=== PATIENT | female | born 1965 | race Caucasian/White ===

== ENCOUNTER 2019-05-09 15:30 | Outpatient (RCR) | payer OTHER, SELFPAY ==
--- NOTE | 2019-04-11 15:59 | PTOPEVAL ---
PHYSICAL THERAPY EVALUATION AND PLAN OF CARE 04-11-2019 The PT evaluation was completed for the diagnosis of low back pain, with sciatica to R LE. The plan of treatment is for 2x/week for 4 weeks. Thank you for referring Tigist to [facility]. Please review, sign, date and return this plan of care [facility]. I agree with and certify that the following plan of care is medically necessary. Referring Physician Date Attending Provider: Erica Lara MD *PT Outpatient Evaluation Start: 04/11/19 15:07 Document 04/11/19 15:00 TRACIE (Rec: 04/11/19 15:53 TRACIE [id number]) Outpatient Past Medical History Neurological History Hx Neurological Disorders No Significant History Cardiovascular History Hx Hypercholesterolemia Yes: meds Respiratory History Hx Respiratory Disorders No Significant History Gastrointestinal History Hx Gastrointestinal Disorders No Significant History Genitourinary History Hx Genitourinary Disorders No Significant History Musculoskeletal History Hx Arthritis Yes Hx Back Pain Yes: this incident; back pain with Hematological History Hx Hematological Disorders No Significant History Endocrine History Hx Diabetes Yes: borderline- testing blood and no meds HEENT History Hx HEENT Disorders No Significant History Integumentary History Hx Skin Disorders No Significant History Evaluation Information Problem Diagnosis low back pain, sciatica R LE Onset Feb 18, 2019 Subjective Information lifting and doing more; to ER Query Text:As Reported By Patient/ Feb 21; took predisone did not Family help; saw chiropractor- helped a little; doing exercises from ER, helped some; home TENS unit helps, continue to use; back is much better than initially; did have problems with stairs and walking, now better; Diagnostic Tests X-Rays For This Problem Yes: per pt- nothing on it Previous Treatments Previous Treatments For This Problem chiropractor- popped back and electric stim Prior Level of Function Activity Level (Last 3 Months) 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
--- NOTE | 2019-05-09 16:03 | PTOPEVAL ---
PHYSICAL THERAPY DISCHARGE 05-09-2019 Ms. Queen has received 6 Physical Therapy sessions, from April 11 to today, for the diagnosis of back pain. Compared to the initial evaluation she has improved with: decreased pain rating;increased reported walking, sleeping, sitting tolerances; Oswestry score improved; increased flexibility of anterior hips/quads; improved posture and position of her back in standing and independent with her home exercises and home management of her pain. The PT goals have been achieved, except radicular pain into R anterior thigh; she will be discharged from PT at this time. Thank you for referring Tigist to [facility]. Please review, sign, date and return this plan of care [facility]. I agree with and certify that the following plan of care is medically necessary. Referring Physician Date Attending Provider: Erica Lara, Document 05/09/19 15:35 TRACIE (Rec: 05/09/19 16:03 TRACIE [email or web address]) Assessment Status Discharge Subjective Information Tigist reports: back is better, Query Text:As Reported By Patient/ has gotten back to doing more Family ; is back to doing everything again; is doing exercises and they help; agrees to discharge from PT services. Oswestry self assessment score of 18% limitation; Pain Assessment Timing of Pain Assessment Timing of Pain Assessment Assessment Pain Scale Pain Scale Used Numeric (1 - 10) Self Report Pain Assessment Right Back Reported Pain Level 2 Pain Radiation Right Leg Radicular Pain Location with more activity, into R anterior thigh-daily,10-15 min ,several times/day Pain Frequency Acute Current Pain Intensity 2 Lowest Pain Intensity 0 Greatest Pain Intensity 4 Pain Level Goal 0 Pain Aggravating Factors Exercise/Activity,Sitting Other Pain Aggravating Factors sit too long and first get up; once walk and move- it OK; put on shoes/sock Pain Behaviors None Pain Relief Interventions Used By Exercise,Ice,Inactivity/Rest, Patient Position Change,Walking Other Alleviating Interventions taken ibuprofen 3x in past week;has back brace for heavy tasks Additional Pain Comments walk tolerance not limited; sleeping without awaken due to back pain~8hr Pain Score Pain Score 2: Self Report Lower Extremity Range of Motion General Lower Extremity Range of Motion Gross Lower Extremity Range of Motion anterior hip/quad length with Comments prone knee flexio
== END 2019-05-13 11:12 | disposition home or self-care (01) ==
LOC: ANHPT 15:30
PROVIDERS: PCP Family Medicine; Visit Provider Family Medicine
DX: M54.40 Lumbago with sciatica, unspecified side (principal)
CPT/HCPCS: 97012; 97110; 97161

== ENCOUNTER 2022-05-11 13:38 | Outpatient (CLI) | payer OTHER, SELFPAY ==
--- NOTE | ~2022-05-11 | CT_ITS ---
EXAMINATION: CT lung screening DATE: 05/11/2022 14:15 INDICATION: History of tobacco dependence. Cough. TECHNIQUE: Computed tomography (CT) of the chest was performed without intravenous contrast. The dose -length product was 91.22 mGy-cm. Automated exposure control and iterative reconstruction technique w ere employed. COMPARISON: Chest x-ray dated 05/07/2018 FINDINGS: No thoracic lymphadenopathy. Small pericardial effusion. No significant pleural effusion. T he upper abdomen is unremarkable. There is 2 mm right upper lobe nodule, image 39. There is a part so lid 6 mm nodule in the right upper lobe, image 48. There is a 6 some solid 7 mm right upper lobe nodu le, image 46. The there is a groundglass nodule in the of the right upper lobe adjacent to the fissur e measuring 6 mm. There are additional smaller scattered nodules in both lungs. No pneumothorax. Ther e is a part solid or 7 mm nodule in the left lower lobe. No endobronchial lesions. No pneumothorax. IMPRESSION: 1. Lung-RADS category 3: Probably benign. Further evaluation is recommended with noncontrast low-dose chest CT in 6 months. Reviewed, dictated and finalized at location B. HER ETCHER IMPRESSION: 1. Lung-RADS category 3: Probably benign. Further evaluation is recommended wit h noncontrast low-dose chest CT in 6 months.
== END 2022-05-11 13:39 | disposition home or self-care (01) ==
PROVIDERS: PCP Family Medicine; Visit Provider Physician Assistant
DX: R05.9 Cough, unspecified (principal); Z87.891 Personal history of nicotine dependence; R91.8 Other nonspecific abnormal finding of lung field
CPT/HCPCS: 71271

== ENCOUNTER 2022-07-07 15:06 | Outpatient (CLI) | payer OTHER, SELFPAY ==
--- NOTE | ~2022-07-07 | MM_ITS ---
EXAMINATION: MM screening fam BI w virgie HISTORY: Screening mammogram TECHNIQUE: Craniocaudal and mediolateral oblique 3-D tomosynthesis images were obtained and synthetic 2-D images were generated. CAD analysis was submitted and interpreted. COMPARISON: No prior mammogram is available for comparison at this institution. BREAST PARENCHYMAL COMPOSITION: There are scattered areas of fibroglandular density. FINDINGS: There is no evidence of suspicious mass, calcification, or architectural distortion to sugg est malignancy in either breast. There has been no suspicious interval change. IMPRESSION: 1. No mammographic evidence of malignancy. 2. Recommend routine screening mammography in one year. BI-RADS Category 1: Negative Reviewed, dictated and finalized at location A.
== END 2022-07-07 15:07 | disposition home or self-care (01) ==
LOC: ANHIMG 15:09
PROVIDERS: PCP Physician Assistant; Visit Provider Physician Assistant
DX: Z12.31 Encounter for screening mammogram for malignant neoplasm of breast (principal)
CPT/HCPCS: 77063; 77067

== ENCOUNTER 2023-05-15 12:35 | Outpatient (CLI) | payer OTHER, SELFPAY ==
--- NOTE | ~2023-05-15 | CT_ITS ---
EXAMINATION: CT lung screening DATE: 05/15/2023 13:01 INDICATION: Personal history of nicotine dependence, current smoker with 40 pack year history TECHNIQUE: Computed tomography (CT) of the chest was performed without intravenous contrast. The dose -length product (DLP) was 71.56 mGy-cm. Automated exposure control and iterative reconstruction techn ique were employed. COMPARISON: 05/11/2022 FINDINGS: There is mild emphysema. Several small lung nodules seen on the comparison CT have resolved , likely reflecting infection/inflammation. There is a stable 9 mm some solid nodule in the right upp er lobe without an internal solid component on image 40. There is a stable 9 mm some solid nodule in the superior segment of the right lower lobe without solid component on image 50. There is a stable 9 mm part solid nodule with cavitation in the left lower lobe. No new pulmonary nodules are identified . No pleural effusion or pneumothorax. No pathologically enlarged thoracic lymph nodes are identified . The heart size is normal. There is calcified coronary artery atherosclerosis. A small pericardial e ffusion is noted. There is moderate thoracic spondylosis. IMPRESSION: 1. Lung-RADS category 2: Benign appearance or behavior. Continue annual screening with noncontrast lo w-dose chest CT in 12 months. Reviewed, dictated and finalized at location B. UREMENT ASSISTANT IMPRESSION: 1. Lung-RADS category 2: Benign appearance or behavior. Continue annual screeni ng with noncontrast low-dose chest CT in 12 months.
== END 2023-05-15 12:36 | disposition home or self-care (01) ==
PROVIDERS: PCP Physician Assistant; Visit Provider Physician Assistant
DX: Z12.2 Encounter for screening for malignant neoplasm of respiratory organs (principal); Z87.891 Personal history of nicotine dependence; R91.1 Solitary pulmonary nodule
CPT/HCPCS: 71271

== ENCOUNTER 2023-10-06 14:27 | Outpatient (CLI) | payer OTHER, SELFPAY ==
--- NOTE | ~2023-10-06 | MM_ITS ---
EXAMINATION: MM screening fam BI w virgie HISTORY: Screening TECHNIQUE: Craniocaudal and mediolateral oblique 3-D tomosynthesis images were obtained and synthetic 2-D images were generated. CAD analysis was submitted and interpreted. COMPARISON: 07/07/2022 BREAST PARENCHYMAL COMPOSITION: Not dense: There are scattered areas of fibroglandular density. FINDINGS: There is no evidence of suspicious mass, calcification, or architectural distortion to sugg est malignancy in either breast. There has been no suspicious interval change. IMPRESSION: 1. No mammographic evidence of malignancy. 2. Recommend routine screening mammography in one year. BI-RADS Category 1: Negative Reviewed, dictated and finalized at location B.
== END 2023-10-06 14:28 | disposition home or self-care (01) ==
PROVIDERS: PCP Physician Assistant; Visit Provider Physician Assistant
DX: Z12.31 Encounter for screening mammogram for malignant neoplasm of breast (principal)
CPT/HCPCS: 77063; 77067

== ENCOUNTER 2025-01-15 08:37 | Outpatient (CLI) | payer OTHER, SELFPAY ==
--- NOTE | ~2025-01-15 | MM_ITS ---
EXAMINATION: MM screening fam BI w virgie HISTORY: Screening TECHNIQUE: Craniocaudal and mediolateral oblique 3-D tomosynthesis images were obtained and synthetic 2-D images were generated. CAD analysis was submitted and interpreted. COMPARISON: Comparison to multiple prior studies sequentially, with oldest reviewed study dated , 07/07/2022 BREAST PARENCHYMAL COMPOSITION: There are scattered areas of fibroglandular density. FINDINGS: There is no evidence of suspicious mass, calcification, or architectural distortion to suggest malignancy in either breast. IMPRESSION: 1. No mammographic evidence of malignancy. 2. Recommend routine screening mammography in one year. BI-RADS Category 1: Negative Reviewed, dictated and finalized at location B. 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
== END 2025-01-15 08:38 | disposition home or self-care (01) ==
PROVIDERS: PCP Physician Assistant; Visit Provider Physician Assistant
DX: Z12.31 Encounter for screening mammogram for malignant neoplasm of breast (principal)
CPT/HCPCS: 77063; 77067